=== PATIENT | female | born 1995 | race African-American/Black ===

== ENCOUNTER 2022-12-01 14:05 | Emergency (ER) | payer OTHER ==
[2022-12-01 14:15] VITALS: BP 107/66; PULSE 79; RESP 18; TEMP 98.2; BMI 21.8
[2022-12-01 15:17] LABS: BASO % 0.6 % (0-2.0); EOS % 0.9 % (0-4.5); HEMATOCRIT 33.3 % (32.4-45.2); HEMOGLOBIN 10.6 GM/dL (10.7-15.3); MCH 23.9 pg (25.7-33.7); MEAN CELL VOLUME 74.9 fl (80-96); MEAN PLT VOLUME 7.9 fl (7.5-11.1); MONO % 6.7 % (3.8-10.2); NEUT % 57.8 % (42.8-82.8); PLATELET COUNT 290 10^3/uL (134-434); RBC 4.45 M/mm3 (3.60-5.2); RDW 17.7 % (11.6-15.6); WHITE BLOOD COUNT 6.2 K/mm3 (4.0-10.0)
[2022-12-01 15:19] LABS: EPI CELLS 19 /uL (0-25.1); HYALINE CASTS 0 /uL (0-3.1); PH,URINE 6.5 (5.0-8.0); URINE APPEARANCE CLEAR; URINE BACTERIA 336 /uL (0-1359); URINE BILIRUBIN NEGATIVE (NEGATIVE); URINE COLOR YELLOW; URINE GLUCOSE (UA) NEGATIVE (NEGATIVE); URINE KETONE NEGATIVE (NEGATIVE); URINE LEUK ESTERASE NEGATIVE (NEGATIVE); URINE NITRITE NEGATIVE (NEGATIVE); URINE PROTEIN NEGATIVE (NEGATIVE); URINE RBC 7 /uL (0-23.9); URINE WBC 4 /uL (0-25.8)
[2022-12-01 15:45] LABS: POTASSIUM 4.6 mmol/L (3.5-5.1)
[2022-12-01 15:47] LABS: CALCIUM 9.1 mg/dL (8.5-10.1)
[2022-12-01 15:48] LABS: BLOOD UREA NITROGEN 6.3 mg/dL (7-18)
[2022-12-01 15:50] LABS: CREATININE 0.6 mg/dL (0.55-1.3)
[2022-12-01 15:52] LABS: BILIRUBIN,TOTAL 0.2 mg/dL (0.2-1)
[2022-12-01] MEDS ORDERED: RHO(D) IMMUNE GLOBULIN 1,500 UNIT DISP.SYRIN IM ONE (21:01)
== END 2022-12-01 21:55 | disposition home or self-care (01) ==
LOC: JERFT 14:05
DX: O20.9 Hemorrhage in early pregnancy, unspecified (principal); O23.91 Unspecified genitourinary tract infection in pregnancy, first trimester; R82.71 Bacteriuria; Z3A.09 9 weeks gestation of pregnancy
CPT/HCPCS: 36415; 76817-TC; 80053; 81003; 84702; 85025; 87070; 87077; 87086; 87205; 87491; 87591; 87661; 99284-25

== ENCOUNTER 2024-10-09 16:55 | Emergency (ER) | payer BC ==
[2024-10-09 17:02] VITALS: TEMP 98.1; BMI 21.8
[2024-10-09 18:06] LABS: EPI CELLS 8 /uL (0-25.1); HYALINE CASTS 0 /uL (0-3.1); URINE APPEARANCE CLEAR; URINE BACTERIA 53 /uL (0-1359); URINE BILIRUBIN NEGATIVE (NEGATIVE); URINE COLOR YELLOW; URINE GLUCOSE (UA) NEGATIVE (NEGATIVE); URINE KETONE NEGATIVE (NEGATIVE); URINE LEUK ESTERASE 1+ (NEGATIVE); URINE NITRITE NEGATIVE (NEGATIVE); URINE PROTEIN NEGATIVE (NEGATIVE); URINE RBC 15 /uL (0-23.9); URINE UROBILINOGEN 0.2 mg/dL (0.2-1.0); URINE WBC 27 /uL (0-25.8)
[2024-10-09 19:15] LABS: ABSOLUTE IMMATURE GRANULOCYTES 0.01 x10^3/uL (0.0-0.031); BASOPHILS # 0.05 x10^3/uL (0.01-0.08); EOSINOPHIL % 1.8 % (0.7-5.8); EOSINOPHILS # 0.11 x10^3/uL (0.04-0.36); MCHC 31.1 g/dl (32.2-35.5); MEAN CELL VOLUME 79.1 fl (79.4-94.8); MEAN PLT VOLUME 9.7 fl (9.4-12.3); MONOCYTE # 0.44 x10^3/uL (0.24-0.86); MONOCYTE % 7.3 % (4.7-12.5); RDW 15.6 % (12.1-16.5)
[2024-10-09 19:32] LABS: GLUCOSE,RANDOM 100.0 mg/dL (74-106); TOT PROT 7.9 g/dl (6.4-8.2)
[2024-10-09 19:35] LABS: ALK PHOS 54.0 U/L (40-150)
[2024-10-09 19:37] LABS: SGOT/AST 20.0 U/L (5-34); SGPT/ALT 16.0 U/L (0-55)
[2024-10-09 19:38] LABS: CREATININE 0.75 mg/dL (0.55-1.3)
[2024-10-09 19:51] LABS: HIV INTERPRETATION NEGATIVE (NEGATIVE)
[2024-10-09 19:52] LABS: HCV DIAGNOSTIC IN-HOUSE W/RFLX NON-REACTIVE (NONREACTIVE)
[2024-10-09 20:59] LABS: CO2 19.0 mmol/L (21-32)
[2024-10-09 21:20] VITALS: BP 110/70; PULSE 80; RESP 16
== END 2024-10-09 21:20 | disposition home or self-care (01) ==
LOC: JER 16:55
DX: O26.891 Other specified pregnancy related conditions, first trimester (principal); R10.30 Lower abdominal pain, unspecified; R11.0 Nausea; Z3A.01 Less than 8 weeks gestation of pregnancy
CPT/HCPCS: 36415; 76817-TC; 80053; 81003; 84702; 85025; 86803; 86850; 86900; 86901; 87086; 87389; 99284-25